=== PATIENT | female | born 1985 | race American Indian/Alaskan Native ===

== ENCOUNTER 2017-02-02 10:16 | Outpatient (CLI) | payer OTHER ==
--- NOTE | 2017-02-02 10:48 | XRay Report ---
LUMBAR SPINE RADIOGRAPHS: INDICATION: Lumbar pain. COMPARISON: None similar at this institution. FINDINGS: AP and lateral lumbar spine radiographs demonstrate normal vertebral body stature and alignment. Mild L5-S1 disc narrowing not excluded. Normal remainder disc heights. Moderate to large colonic stool/possible constipation. Intact SI joints. Replaced right hip. CONCLUSION: No acute lumbar radiographic abnormality with other findings, as above. Thank you for the opportunity to participate in this patient's care.
== END 2017-02-02 10:17 | disposition home or self-care (01) ==
LOC: XRAY 10:16
PROVIDERS: ATTEND Internal Medicine
DX: M54.5 Low back pain (principal); M87.051 Idiopathic aseptic necrosis of right femur; M46.90 Unspecified inflammatory spondylopathy, site unspecified; F32.9 Major depressive disorder, single episode, unspecified; F41.9 Anxiety disorder, unspecified; G47.00 Insomnia, unspecified; J45.909 Unspecified asthma, uncomplicated; F90.9 Attention-deficit hyperactivity disorder, unspecified type; F50.9 Eating disorder, unspecified; Z96.641 Presence of right artificial hip joint
CPT/HCPCS: 72100

== ENCOUNTER 2017-02-06 14:58 | Emergency (ER) | payer BC, OTHER ==
[2017-02-06] MEDS ORDERED: NACL 0.9% 500 ML 500 ML IV ONE (15:48)
[2017-02-06 16:48] LABS: Basophils % (Auto) 0.4 % (0.0-1.8); Eosinophils % (Auto) 0.2 % (0.0-4.3); Hematocrit 39.9 % (30.3-42.9); Hemoglobin 12.9 gm/dl (10.1-14.3); Mean Corpuscular HGB Conc 32 % (30-34); Mean Corpuscular Hemoglobin 28 pg (28-32); Mean Corpuscular Volume 87 fl (79-97); Platelet Count 352 K/mm3 (140-440); Red Blood Count 4.61 M/mm3 (3.65-5.03)
[2017-02-06 16:51] LABS: Bacteria,Urine 1+ /HPF (Negative); Bilirubin,Urine NEG (Negative); Blood,Urine LG (Negative); Ketones,Urine 20 mg/dL (Negative); Leukocyte Esterase,Urine SM (Negative); Mucus,Urine 2+ /HPF; Nitrite,Urine NEG (Negative)
[2017-02-06 16:55] LABS: Alanine Aminotransferase 30 units/L (7-56); Albumin 4.2 g/dL (3.9-5); Albumin/Globulin Ratio 1.3 %; Alkaline Phosphatase 80 units/L (35-129); Anion Gap 20 mmol/L; BUN/Creatinine Ratio 13.33; Blood Urea Nitrogen 8 mg/dL (7-17); Calcium 8.7 mg/dL (8.4-10.2); Carbon Dioxide 21 mmol/L (22-30); Chloride 98.8 mmol/L (98-107); Glucose 102 mg/dL (65-100); Potassium 3.8 mmol/L (3.6-5.0); Sodium 136 mmol/L (137-145); Total Protein 7.5 g/dL (6.3-8.2)
[2017-02-06 16:58] LABS: INR 0.98 (0.87-1.13)
[2017-02-06] MEDS ORDERED: NACL 0.9% 1000 ML 1,000 ML IV ONE ×2 (17:48→19:21)
--- NOTE | 2017-02-06 18:36 | Emergency Department Report ---
ED Fever HPI - General Chief Complaint: Fever Stated Complaint: FEVER Time Seen by Provider: 02/06/17 17:24 Source: patient, RN notes reviewed Exam Limitations: no limitations - History of Present Illness Initial Comments: 31-year-old female presents to the emergency department complaining of fever and generalized ill feeling. Patient states that she was treated for bronchitis approximately 2 weeks ago. She was feeling better until 4 days ago when the fever returned. She also reports generalized body aches, sore throat, and cough. Patient reports fever up to 104F. Patient was seen at the urgent care but sent to the emergency department due to an elevated heart rate. Patient reportedly had negative strep, mono, and flu tests at the urgent care. Patient states that at the urgent care her heart rate was up to 150 bpm. She was given ibuprofen at the urgent care for fever. There are no other complaints. 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 - Family History Family history: no significant - Social History Smoking Status: Never Smoker Substance Use Type: Prescribed - Medications Home Medications: Home Medications Medication Instructions Recorded Confirmed Last Taken Type traMADol [Ultram] 50 mg PO Q6HR PRN #20 tablet 02/06/17 Unknown Rx ED Physical Exam - General Limitations: No Limitations General appearance: alert, in no apparent distress - Head Head exam: Present: atraumatic, normocephalic - Eye Eye exam: Present: normal appearance, PERRL, EOMI - ENT ENT exam: Present: normal exam, normal orophraynx, mucous membranes moist - Neck Neck exam: Present: normal inspection, full ROM. Absent: tenderness - Respiratory Respiratory exam: Present: normal lung sounds bilaterally. Absent: respiratory distress - Cardiovascular Cardiovascular Exam: Present: normal rhythm, tachycardia, normal heart sounds - GI/Abdominal GI/Abdominal exam: Present: soft, normal bowel sounds. Absent: distended, tenderness - Extremities Exam Extremities exam: Present: normal inspection, full ROM. Absent: tenderness - Back Exam Back exam: Present: normal inspection, full ROM. Absent: tenderness - Neurological Exam Neurological exam: Present: alert, oriented X3. Absent: motor sensory deficit - Skin Skin exam: Present: warm, dry, intact ED Course Vital Signs 02/06/17 02/06/17 02/06/17 15:34 17:33 18:30 Temperature 98.9 F 99 F Pulse Rate 125 H 123 H 113 H Respiratory 18 16 Rate Blood Pressure 105/76 Blood Pressure 110/73 [Right] O2 Sat by Pulse 100 100 Oximetry 02/06/17 02/06/17 20:16 21:25 Temperature 98 F Pulse Rate 78 Respiratory 18 18 Rate Blood Pressure Blood Pressure 108/71 [Right] O2 Sat by Pulse 100 Oximetry ED Medical Decision Making - Lab Data Result diagrams: 02/06/17 16:16 02/06/17 16:16 - EKG Data -: EKG Interpreted by Me EKG shows normal: sinus rhythm, axis, intervals, QRS complexes, ST-T waves Rate: tachycardia - EKG Data When compared to previous EKG there are: previous EKG unavailable Interpretation: normal EKG - Radiology Data Radiology results: image reviewed interpreted by me: Chest x-ray shows no acute cardiopulmonary abnormality. - Medical Decision Making Lab and imaging results reviewed and discussed with the patient. Patient's heart rate is slowly improving with IV fluids. Patient would like to go home at this time. Patient is being discharged home to follow up with her primary care physician. - Differential Diagnosis pneumonia, bronchitis, dehydration Critical care attestation.: If time is entered above; I have spent that time in minutes in the direct care of this critically ill patient, excluding procedure time. ED Disposition Clinical Impression: Acute bronchitis Qualifiers: Bronchitis organism: unspecified organism Qualified Code(s): J20.9 - Acute bronchitis, unspecified Disposition: DISCHARGED TO HOME OR SELFCARE Is pt being admited?: No Condition: Stable Instructions: Acute Bronchitis (ED) Prescriptions: traMADol [Ultram] 50 mg PO Q6HR PRN #20 tablet PRN Reason: Pain Referrals: PRIMARY CARE, [Primary Care Provider] - 3-5 Days Time of Disposition: 21:49
[2017-02-06] MEDS ORDERED: LIDOCAINE VISCOUS 2% PO ONE (19:21)
[2017-02-06] MEDS ORDERED: MORPHINE IV ONE (21:06)
[2017-02-06 22:08] VITALS: BP 103/74
--- NOTE | 2017-02-07 07:46 | XRay Report ---
AP CHEST: HISTORY: Sepsis AP view of the chest demonstrates a normal mediastinal and cardiac contour with clear lungs and normal bony and soft tissue structures. IMPRESSION: Unremarkable AP chest.
== END 2017-02-06 22:06 | disposition home or self-care (01) ==
LOC: ED 14:58
DX: J20.9 Acute bronchitis, unspecified (principal)
CPT/HCPCS: 36415; 71010; 80053; 81001; 82140; 82805; 84443; 85025; 85610; 87040; 87086; 93005; 93010; 96361; 96374; 99285; J2270; J7030; J7040